=== PATIENT | female | born 1945 | race Caucasian/White ===

== ENCOUNTER 2017-11-10 22:03 | Inpatient (IN) | payer OTHER, BC ==
[~2017-11-10] VITALS: Ht 170.2 cm; Wt 104.4 kg
[~2017-11-10 22:03] MED LIST: ACCUPRIL10 MG PO; BAYER ADVANCED500 MG PO; BISOPROLOL FUMA10 MG PO; HYDROCHLOROTHIA25 MG PO; LEVOTHYROXINE25 MCG PO; MAGNESIUM250 MG PO; POTASSIUM-9999 MG PO; PRILOSEC40 MG PO; TYLENOL EXTRA500 M1 PO; TYLENOL REGULA325 MG PO; VITAMIN PO; ZIAC 10/6.251 TABLET PO
[2017-11-11 06:03] VITALS: BP 125/70
[2017-11-11 12:00] VITALS: BP 115/56
[2017-11-11 16:33] VITALS: BP 124/71
[2017-11-11 19:40] VITALS: BP 105/51
[2017-11-11 23:11] VITALS: BP 117/58
[2017-11-12 04:15] VITALS: BP 102/55
[2017-11-12 06:55] LABS: HEMATOCRIT 32.1 % (36.0-46.0); MCV 92.2 FL (83-99)
[2017-11-12] MEDS ORDERED: ASPIR-LOW81 MG PO (09:55)
[2017-11-12] MEDS ORDERED: SENNA PLUS TAB1 EACH PO (09:55)
[2017-11-12] MEDS ORDERED: TYLENOL WITH C1 EACH PO (09:55)
== END 2017-11-12 13:13 | disposition home or self-care (01) | DRG 483 ==
LOC: ENRESERV 22:03 → 2SOUTH 11-11 05:17 → ENRESERV 11-11 10:05 → 3EAST 11-11 11:37 → 2SOUTH 11-11 12:12 → 3EAST 11-12 13:13
PROVIDERS: Orthopaedic Surgery
DX: M19.011 Primary osteoarthritis, right shoulder (principal); I10 Essential (primary) hypertension; I71.2 Thoracic aortic aneurysm, without rupture; Z80.1 Family history of malignant neoplasm of trachea, bronchus and lung; Z82.3 Family history of stroke
CPT/HCPCS: 73020; 82948; 85014; 85018; C1713; J0330; J0690; J1100; J1170; J1815; J2250; J2405; J2710; J2795; J3010; J7030; J7050; J7643; Q0175; S0020